=== PATIENT | female | born 1960 | race Asian ===

== ENCOUNTER 2016-07-06 15:10 | Emergency (ER) | payer OTHER ==
[~2016-07-06] VITALS: Ht 157.5 cm; Wt 65.0 kg
[~2016-07-06 15:10] MED LIST: CYCL5TAB PO; ENAL20TA PO; HYDR25TA5 PO; METO50TA PO; PRED20 PO
[2016-07-06 15:13] VITALS: BP 176/84; PULSE 74; RESP 16; TEMP 97.9; O2SAT 98
--- NOTE | 2016-07-06 18:14 | PD ---
HPI Chief Complaint: Medical Clearance Time Seen by Provider: 18:11 Travel History International Travel<30 days: No Contact w/Intl Traveler<30days: No Traveled to known affect area: No History of Present Illness HPI Patient comes in complaining of continued left Achilles tendon pain ongoing from last week. Patient states she was seen at urgent care and diagnosed with Achilles tendinitis. Patient reports she has a follow-up appointment scheduled with podiatry as well as her primary care doctor next week however her work note that she has been urgent care has . Patient states she contacted the urgent care but they would not extend her work note and would not reportedly re-evaluate her. Patient contacted employee [employer] , who recommended she come to the emergency department for further treatment and evaluation. 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 Patient denies any new injuries, numbness, or tingling. Patient reports she been taking medication as prescribed. [facility] Past Medical History Asthma: Yes Diminished Hearing: No Hypertension: Yes ?: Not LMP: 04/2016 Menopausal: Yes Social History Alcohol Use: Yes Tobacco Use: No Substance Use: No Allergies-Medications (Allergen,Severity, Reaction): Coded Allergies: Clonidine (Verified Allergy, Severe, 07/06/16) Penicillin (Verified Allergy, Severe, Rash, 07/06/16) Reported Meds & Prescriptions Reported Meds & Active Scripts Active Prednisone 20 Mg Tab 20 Mg PO DAILY Flexeril (Cyclobenzaprine HCl) 5 Mg Tab 5 Mg PO HS Reported Hydrochlorothiazide 25 Mg Tab 25 Mg PO DAILY Metoprolol Tartrate 50 Mg Tab 50 Mg PO BID Enalapril (Enalapril Maleate) 20 Mg Tab 20 Mg PO DAILY Review of Systems Except as stated in HPI: all other systems reviewed are Neg Physical Exam Narrative GENERAL: Well-developed, well nourished, in no acute distress, and non-ill appearing. SKIN: Warm and dry. HEAD: Atraumatic. Normocephalic. EYES: Pupils equal and round. EOMI. No scleral icterus. No injection or drainage. ENT: No nasal bleeding or discharge. Mucous membranes pink and moist. NECK: Trachea midline. Supple. No nuclear rigidity. RESPIRATORY: No accessory muscle use. No respiratory distress. MUSCULOSKELETAL: No obvious deformities. No clubbing. No cyanosis. No edema. Full range of motion. Neagative Gaxiola test. Negative Michael's sign. Sensation equal BL 1st web space. FROM distal to injury and equal BL. Dorsal pulses equal BL. NEUROLOGICAL: Awake and alert. No obvious cranial nerve deficits. Motor grossly within normal limits. Normal speech. PSYCHIATRIC: Appropriate mood and affect; insight and judgment normal. Data Data Last Documented VS Vital Signs Date Time Temp Pulse Resp B/P Pulse Ox O2 Delivery O2 Flow Rate FiO2 07/06/16 15:13 97.9 74 16 176/84 98 MDM Medical Decision Making Medical Screen Exam Complete: Yes Emergency Medical Condition: No Differential Diagnosis Tendinitis, medical clearance, medical noncompliance, other Narrative Course Patient in no obvious distress upon re-evaluation. Any questions/concerns in reference to patient diagnosis/condition discussed and clarified prior to patient's discharge. Reinforced sheer importance of close follow up with patient 's primary physician or primary care clinic. Instructed patient to return to ED immediately, if symptoms return/worsen. Pt showed understanding of above instructions. Further instructions and recommendations were detailed in discharge paperwork. Pt ambulated without difficulty out of ED at discharge. Diagnosis Primary Impression: Achilles tendinitis, left leg Departure Forms: Work Release Enter return to work date: Jul 09, 2016 Additional Instructions: Follow-up with your primary care physician and small package and bundle sorter clerk as previously instructed. Take all medication as previously prescribed. Return to the emergency department if symptoms get worse. Disposition: 01 DISCHARGE HOME Condition: Stable Christiano Llamas Jul 06, 2016 18:14
== END 2016-07-06 18:40 | disposition home or self-care (01) ==
LOC: NEPB 15:10
DX: M76.60 Achilles tendinitis, unspecified leg (principal); F10.10 Alcohol abuse, uncomplicated; J45.909 Unspecified asthma, uncomplicated
CPT/HCPCS: 99282

== ENCOUNTER → 2016-07-11 | Outpatient (CLI) | payer OTHER ==
[2016-07-11 13:02] LABS: AUTOMATED NEUTROPHIL # 3.7 TH/MM3 (1.8-7.7); BASOPHIL # 0.1 TH/MM3 (0-0.2); BASOPHIL % 1.7 % (0.0-2.0); EOSINOPHIL # 0.4 TH/MM3 (0-0.4); EOSINOPHIL % 6.6 % (0.0-4.0); HEMATOCRIT 42.3 % (35.0-46.0); HEMO FLAGS DIFF FINAL; LYMPH % 25.7 % (9.0-44.0); LYMPHOCYTE # 1.6 TH/MM3 (1.0-4.8); MEAN CELL VOLUME 86.3 FL (80.0-100.0); MEAN CORPUSCULAR HEMOGLOBIN 29.3 PG (27.0-34.0); MONO % 7.4 % (0.0-8.0); NEUT % 58.6 % (16.0-70.0); PLATELET COUNT 253 TH/MM3 (150-450); RED CELL DISTRIBUTION WIDTH 12.8 % (11.6-17.2); WHITE BLOOD COUNT 6.3 TH/MM3 (4.0-11.0)
[2016-07-11 13:12] LABS: ANION GAP 8 MEQ/L (5-15); AST (GOT) 12 U/L (15-37); BICARBONATE 27.8 MEQ/L (21.0-32.0); BLOOD UREA NITROGEN 13 MG/DL (7-18); CHLORIDE 101 MEQ/L (98-107); GLOMERULAR FILTRATION RATE 68 ML/MIN (>89); GLUCOSE,FASTING 93 MG/DL (74-99); POTASSIUM 3.6 MEQ/L (3.5-5.1); SODIUM (NA) 137 MEQ/L (136-145)
[2016-07-11 13:23] LABS: ALKALINE PHOSPHATASE 91 U/L (45-117); ALT (GPT) 18 U/L (10-53); HDL CHOLESTEROL 54.3 MG/DL (40.0-60.0); LDL CHOLESTEROL 169 MG/DL (0-99); TOTAL BILIRUBIN ADULT 0.6 MG/DL (0.2-1.0)
== END ==
LOC: CLAB 12:35
PROVIDERS: ATTEND Family Medicine
DX: I10 Essential (primary) hypertension (principal)
CPT/HCPCS: 36415; 80053; 80061; 84443; 85025

== ENCOUNTER → 2016-11-05 | Outpatient (CLI) | payer OTHER ==
[2016-11-05 15:33] LABS: AUTOMATED NEUTROPHIL # 5.4 TH/MM3 (1.8-7.7); BASOPHIL % 0.6 % (0.0-2.0); EOSINOPHIL # 0.3 TH/MM3 (0-0.4); EOSINOPHIL % 3.7 % (0.0-4.0); HEMO FLAGS DIFF FINAL; LYMPH % 22.7 % (9.0-44.0); LYMPHOCYTE # 1.8 TH/MM3 (1.0-4.8); MEAN CELL VOLUME 85.2 FL (80.0-100.0); MEAN CORPUSCULAR HEMOGLOBIN 29.2 PG (27.0-34.0); MEAN CORPUSCULAR HGB CONC 34.3 % (32.0-36.0); MONO % 5.8 % (0.0-8.0); NEUT % 67.2 % (16.0-70.0); PLATELET COUNT 314 TH/MM3 (150-450); RED BLOOD COUNT 4.82 MIL/MM3 (4.00-5.30); RED CELL DISTRIBUTION WIDTH 12.5 % (11.6-17.2); WHITE BLOOD COUNT 8.1 TH/MM3 (4.0-11.0)
[2016-11-05 15:53] LABS: ANION GAP 8 MEQ/L (5-15); AST (GOT) 17 U/L (15-37); BICARBONATE 28.1 MEQ/L (21.0-32.0); CHLORIDE 102 MEQ/L (98-107); GLOMERULAR FILTRATION RATE 63 ML/MIN (>89); GLUCOSE,FASTING 102 MG/DL (74-99); POTASSIUM 3.4 MEQ/L (3.5-5.1); SODIUM (NA) 138 MEQ/L (136-145)
[2016-11-05 16:04] LABS: ALKALINE PHOSPHATASE 112 U/L (45-117); ALT (GPT) 21 U/L (10-53); BLOOD UREA NITROGEN 22 MG/DL (7-18); HDL CHOLESTEROL 48.8 MG/DL (40.0-60.0); LDL CHOLESTEROL 188 MG/DL (0-99); TOTAL BILIRUBIN ADULT 0.7 MG/DL (0.2-1.0)
== END ==
LOC: CLAB 15:03
PROVIDERS: ATTEND Family Medicine
DX: I10 Essential (primary) hypertension (principal); N91.0 Primary amenorrhea; E78.5 Hyperlipidemia, unspecified
CPT/HCPCS: 36415; 80053; 80061; 84443; 85025

== ENCOUNTER 2018-02-19 05:09 | Inpatient (IN) ==
[2018-02-19] MEDS ORDERED: Chlorhexidine Gluconate 2% 1 Pack (2 Cloths) TOPICAL ONE (05:42)
[2018-02-19] MEDS ORDERED: Metoprolol Tartrate 25 MG Tablet PO ONE (05:42)
[2018-02-19] MEDS ORDERED: Dexamethasone Inj 20 MG/5 ML Vial IV.PUSH PRN (05:46)
[2018-02-19] MEDS ORDERED: Vancomycin Inj 1,000 MG in Sodium Chlor 0.9% Inj 250 ML IV.SIG SCH (06:00)
[2018-02-19] MEDS ORDERED: Sodium Chlor 0.9% Inj 500 ML IV.SIG SCH (06:00)
[2018-02-19] MEDS ORDERED: SODIUM CHLOR 0.9% IV.SIG SCH ×3 (06:00→10:00)
[2018-02-19] MEDS ORDERED: TRANEXAMIC ACID IV.SIG SCH ×3 (06:00→10:00)
[2018-02-19] MEDS ORDERED: Sodium Chlor 0.9% Inj 40 ML, Bupivacaine Liposo PF 1.3% Inj 20 ML P-ARTICULR SCH ×2 (06:00)
[2018-02-19] MEDS ORDERED: ceFAZolin 2 GM Premix Inj 2 GM/50 ML PIGGYBACK IV.SIG SCH (06:00)
[2018-02-19] MEDS ORDERED: Chlorhexidine 4% Topical 120 APPLIC/120 ML Bottle TOPICAL SCH (06:00)
[2018-02-19] MEDS ORDERED: fentaNYL Citrate Inj 100 MCG/2 ML Ampul ONE (06:22)
[2018-02-19] MEDS ORDERED: Famotidine PF Inj 20 MG/2 ML Vial ONE (06:22)
[2018-02-19] MEDS ORDERED: fentaNYL Citrate Inj 250 MCG/5 ML Ampul ONE (06:22)
[2018-02-19] MEDS ORDERED: Ketamine Inj 50 MG/5 ML Syringe IV.PUSH ONE (06:31)
[2018-02-19] MEDS ORDERED: Glycopyrrolate Inj 1 MG/5 ML Syringe IV.PUSH ONE (06:48)
[2018-02-19] MEDS ORDERED: Neostigmine Inj 5 MG/5 ML Syringe IV.PUSH ONE (06:48)
[2018-02-19] MEDS ORDERED: Lidocaine PF 1% Inj 5 ML Syringe OTHER ONE (06:48)
--- NOTE | 2018-02-19 06:58 | P.DCO ---
- Physical Therapy Physical Therapy: Gait training, Transfer training, bed to chair Hip: Total hip Right Lower Extremity Weight Bearing: Weight bearing as tolerated Right Lower Extremity Range of Motion: Active ROM - Nursing Nursing: Leesa teaching Dressing changes: Do not change dressing - Certification Need for Home Health services: I have seen patient Alicia Maria on 02/19/18. My clinical findings support the need for the requested home health care services because: Need for Home Health Services: Limited ability to care for self, High risk of falls Homebound Certification: I certify that my clinical findings support that this patient is homebound because: Homebound Certification: Post-op weakness, Unsteady gait/balance
[2018-02-19] MEDS ORDERED: ALPRAZolam 0.5 MG Tablet PO PRN (08:38)
--- NOTE | 2018-02-19 08:38 | P.OP ---
Preoperative Diagnosis: Right hip severe arthritis. Right hip developmental dysplasia Postoperative Diagnosis: Same Date of procedure: 02/19/18 Procedure: Right total hip arthroplasty Anesthesia: GETA Surgeon: Jimi Dunaway MD Operation and Findings: IMPLANT DESCRIPTION: 1. [place] Gription Cup, acetabular size 48. 2. [place] AltrX polyethylene, neutral. 4. Corail femoral stem size 8, no collar, standard offset. 5. Femoral head/neck ceramic 32, +1. ESTIMATED BLOOD LOSS: 250 cc. JUSTIFICATION FOR PROCEDURE: The patient has end-stage osteoarthritis to the hip, with evidence of developmental dysplasia of the hip. The patient had lateral subluxation of the hip on both sides. There is an attached conservative measures pathway form in the chart that describes the nonoperative measures that were undertaken prior to consideration of surgical management. The patient understood the risks and benefits of surgical management. See my office notes for further details. PROCEDURE: The patient was brought back to the operative theatre. Adequate anesthesia was obtained. The patient received intravenous vancomycin and Ancef. Note the patient had a test dose of Ancef without a reaction. The patient was carefully placed on the operative table. The lower extremity was prepped and draped in the usual sterile fashion. Fluoroscopic images were obtained. We made a standard anterior incision over the hip. We dissected through the TFL fascia, exposing the anterior capsule. Arthrotomy was performed in a T-shaped fashion. The capsule was tagged with a #2 FiberWire. End-stage arthritis was identified. Osteotomy was performed through the femoral neck exposing the acetabulum. Remnants of the labrum were resected and osteophytes were removed. We sequentially reamed the acetabulum. We trialed the hip and placed the final cup into position. This was done under fluoroscopic guidance to obtain the appropriate inclination and anteversion. A manhole cover was placed into the acetabular component. We then placed the final polyethylene into position and confirmed that it was well seated. Capsular attachments on the calcar and the inner aspect of the greater trochanter were resected. On the proximal aspect of the femur we used a rongeur , box osteotome, canal finder, sequential broaches and lateralizing rasp. We did need to modify our sequence because the patient had a known very tight canal likely related to her previous dysplasia. We did need to use reamers which were placed over a ball-tipped guidewire. We started with an 8.5 end- cutter. We sequentially went up by half a size of the reamer. After each half- size increment we went back to the broaches including the chili pepper and the size 8 broach. Note that we could not use a size 6 stem because the patient was too heavy for that micro-stem. The 8 stem is the smallest standard stem that is available for the Corail system. We ended up reaming to a size 11 which allowed us to place the 8 stem in very good position. There was some increased anteversion on the stem due to the anatomy of the proximal femur but this ultimately did not affect stability during trialing. We calcar planed the proximal femur. Then thoroughly irrigated the wound. We trialed the hip with the appropriate size stem. We placed the final stem in to position and trialed again. The hip was stable while it was externally rotated 70 degrees when the leg was lowered to the floor. Note that the right hip seem to be slightly longer than the left side on fluoroscopic imaging. Note that the left side has severe osteoarthritis similar from previous developmental hip dysplasia. The patient understood that we may lengthen the right side slightly during the surgery which would then ultimately need to be modified on the left side during surgery on that side. The final head was applied, and final fluoroscopic images were obtained. The wound was thoroughly irrigated again. Interarticular injection of liposomal bupivacaine was given. The capsule was closed with #2 FiberWire and #1 Vicryl. The deep fascia was closed with a #2 Stratafix, followed by 2-0 Vicryl in the skin and Dermabond dressing. Postop plan is to weight-bear as tolerated. DVT prophylaxis will be performed with Amber, VIRI zamora, early mobilization, and Lovenox followed by aspirin.
[2018-02-19] MEDS ORDERED: Bisacodyl 10 MG Supp RECTAL PRN (08:39)
[2018-02-19] MEDS ORDERED: Post-op Orders (for Pharmacy) OTHER STA (08:39)
[2018-02-19] MEDS ORDERED: Aluminum/Magnesium/Simethacone Susp 30 ML UDC PO PRN (08:39)
[2018-02-19] MEDS ORDERED: Morphine Sulfate Inj 2 MG/ML Vial IV.PUSH PRN (09:00)
[2018-02-19] MEDS ORDERED: *Ondansetron Inj 4 MG/2 ML Vial PERIprocedural Use ONLY ONE (09:32)
[2018-02-19] MEDS: Sod Chloride 0.9% Inj 1,000 ML IV.CONT SCH (09:44)
[2018-02-19] MEDS ORDERED: *Promethazine Inj 25 MG/ML Vial PERIprocedural use ONLY ONE (09:58)
--- NOTE | 2018-02-19 09:59 | XR ---
EXAM DATE: 02/19/2018 8:39 AM EDT AGE/SEX: 57 years / Female INDICATIONS: Post op right hip surgery. CLINICAL DATA: This is the patient's initial encounter. Patient reports that signs and symptoms have been present for 1 day and indicates a pain score of 0/10. MEDICAL/SURGICAL HISTORY: None. None. COMPARISON: No prior exams available for comparison. FINDINGS: 3 views of the pelvis and right hip reveal a total hip prosthesis on the right. This is in good posit ion. The tip of the prosthesis approaches but does not abut the endosteum along the posterior medial cortex of the proximal femur. No fracture or dislocation. Advanced osteoarthritis involving the left hip. Soft tissue swelling and air is noted. CONCLUSION: Right hip prosthesis in good position. Advanced osteoarthritis of the left hip. Electronically signed by: Mayito Liriano MD 02/19/2018 9:58 AM EDT
--- NOTE | 2018-02-19 13:00 | XR ---
EXAM DATE: 02/19/2018 12:00 AM EDT AGE/SEX: 57 years / Female INDICATIONS: Right total hip replacement. CLINICAL DATA: This is the patient's initial encounter. Patient reports that signs and symptoms have been present for 1 day and indicates a pain score of Nonresponsive. MEDICAL/SURGICAL HISTORY: Non-responsive. Non-responsive. COMPARISON: No prior exams available for comparison. FINDINGS: 3 magnified C-arm spot views are centered over the hip and labeled right. There is a total hip prosth esis observed. This is in good position. The tip of the prosthesis does abut the endosteum within the proximal femur. No gross fracture on this style of acquisition. CONCLUSION: Total hip prosthesis as detailed above. Electronically signed by: Mayito Liriano MD 02/19/2018 12:58 PM EDT
[2018-02-19] MEDS: Metoprolol Tartrate 50 MG Tablet PO SCH ×2 (13:55→20:16)
[2018-02-19] MEDS: Multivitamin/Minerals Therapeutic Tablet PO SCH ×2 (13:55→20:16)
[2018-02-19] MEDS: hydroCHLOROthiazide 25 MG Tablet PO SCH (13:55)
[2018-02-19] MEDS: Senna/Docusate Sodium 8.6/50 MG Tablet PO SCH ×2 (13:55→20:16)
[2018-02-19] MEDS ORDERED: Zolpidem Tartrate 5 MG Tablet PO PRN (21:00)
[2018-02-20] MEDS: Sod Chloride 0.9% Inj 1,000 ML IV.CONT SCH ×3 (01:37→23:38)
[2018-02-20 07:11] LABS: Hematocrit 26.7 % (35.0-46.0); Hemoglobin 9.2 gm/dL (11.6-15.3)
--- NOTE | 2018-02-20 07:14 | P.PNOP ---
Subjective Interval history: The patient is resting comfortably in bed in no acute distress. The patient reports moderate discomfort to the right hip. The patient is unsure whether she wants to go home with home health today or stay an additional night. Physical Exam Vital signs: Vital Signs 02/19/18 09:00 02/19/18 09:15 02/19/18 09:30 Temperature 97.5 F L Pulse Rate 67 68 65 Respiratory Rate 14 14 Blood Pressure 114/60 140/63 148/69 H Pulse Oximetry 100 100 100 02/19/18 09:45 02/19/18 10:00 02/19/18 10:15 Temperature 97.6 F Pulse Rate 62 58 L 63 Respiratory Rate 14 14 14 Blood Pressure 139/62 140/67 133/72 Pulse Oximetry 100 100 100 02/19/18 12:00 02/19/18 16:15 02/19/18 20:00 Temperature 97.4 F L 97.1 F L 98.8 F Pulse Rate 72 85 88 Respiratory Rate 16 20 18 Blood Pressure 144/72 H 123/61 127/66 Pulse Oximetry 100 99 99 02/19/18 23:13 02/20/18 00:00 02/20/18 03:30 Temperature 98.4 F Pulse Rate 65 Respiratory Rate 18 16 18 Blood Pressure 128/58 L Pulse Oximetry 99 02/20/18 04:00 02/20/18 04:29 Temperature 97.7 F Pulse Rate 72 Respiratory Rate 18 18 Blood Pressure 145/74 H Pulse Oximetry 100 Intake & Output 02/19/18 02/20/18 02/20/18 18:59 06:59 18:59 Intake Total 2305.8 / 2305.8 1100 / 1100 Output Total 550 / 550 350 / 350 Balance 1755.8 / 1755.8 750 / 750 Weight 57.7 kg 57.7 kg Intake: IV 1605.8 / 1605.8 1100 / 1100 NS Inj 1,000 ML @ 80 mls/hr IV. 1000 / 1000 CONT .[id number] [facility] Rx#:[id number] LR 1000 mL Inj 1,000 ML @ 30 1000 / 1000 mls/hr IV.SIG .Q24H [facility] Rx#: [id number] Cyklokapron Inj 580 MG In NS 105.8 / 105.8 Inj 100 ML @ 200 mls/hr IV.SIG ONCE [facility] Rx#:[id number] Vancomycin Inj 1,000 MG In NS 250 / 250 Inj 250 ML @ 250 mls/hr IV.SIG [employer] [facility] Rx#:[id number] Ancef 2 GM Premix Inj 2 gm In 50 / 50 50 ml @ 100 mls/hr IV.SIG METALLURGICAL ENGINEER [facility] Rx#:[id number] Ancef Inj 1,000 MG In NS Inj 200 / 200 100 / 100 100 ML @ 200 mls/hr IV.SIG Q6H [facility] Rx#:[id number] Anesthesia Amount 700 / 700 Output: Urine 300 / 300 350 / 350 Estimated Blood Loss 250 / 250 Other: # Voids 1 4 Date of Last Bowel Movement 02/19/18 02/18/18 Narrative: The patient's dressing is clean, dry, and intact. EHL/TA/G are intact. 2+ pedal pulse. The patient's calf is soft and nontender. Sensation is intact to light touch distally. Results - Labs CBC & Chem 7: 02/20/18 03:46 - Imaging Impressions Hip X-Ray 02/19/18 00:00 CONCLUSION: Total hip prosthesis as detailed above. Hip X-Ray 02/19/18 08:39 CONCLUSION: Right hip prosthesis in good position. Advanced osteoarthritis of the left hip. - Procedures Right total hip arthroplasty Assessment and Plan - Problem List (1) Status post total hip replacement, right Code(s): Z96.641 - Presence of right artificial hip joint Status: Acute (2) Osteoarthritis of right hip Code(s): M16.11 - Unilateral primary osteoarthritis, right hip Status: Acute - Assessment and Plan POD #1: [Right] total hip arthroplasty 1. Weightbearing as tolerated on [right] lower extremity. 2. Lovenox followed by aspirin for DVT prophylaxis. 3. Ice as needed for swelling. 4. Stable per ortho for discharge to home health today or tomorrow. 5. The patient will follow up with Dr. Dunaway and/or JUAN Lemos as previously scheduled.
[2018-02-20] MEDS: Senna/Docusate Sodium 8.6/50 MG Tablet PO SCH ×2 (08:32→20:59)
[2018-02-20] MEDS: Metoprolol Tartrate 50 MG Tablet PO SCH ×2 (08:33→20:59)
[2018-02-20] MEDS: Enoxaparin Inj 40 MG/0.4 ML Syringe SQ SCH (08:34)
[2018-02-20] MEDS: Multivitamin/Minerals Therapeutic Tablet PO SCH ×2 (08:35→20:59)
[2018-02-20] MEDS: hydroCHLOROthiazide 25 MG Tablet PO SCH (08:35)
[2018-02-20] MEDS ORDERED: Dexamethasone Inj 20 MG/5 ML Vial IV.PUSH ONE (09:00)
[2018-02-20 21:04] VITALS: O2SAT 98
[2018-02-21 05:13] LABS: Hematocrit 26.3 % (35.0-46.0); Hemoglobin 9.2 gm/dL (11.6-15.3)
[2018-02-21] MEDS: Metoprolol Tartrate 50 MG Tablet PO SCH (08:36)
[2018-02-21] MEDS: Multivitamin/Minerals Therapeutic Tablet PO SCH (08:36)
[2018-02-21] MEDS: Senna/Docusate Sodium 8.6/50 MG Tablet PO SCH (08:36)
[2018-02-21] MEDS: hydroCHLOROthiazide 25 MG Tablet PO SCH (08:36)
[2018-02-21] MEDS: Enoxaparin Inj 40 MG/0.4 ML Syringe SQ SCH (08:36)
--- NOTE | 2018-02-21 09:45 | P.PNOP ---
Subjective Interval history: The patient is sitting on the side of the bed with decreased discomfort to the right hip. The patient has expressed interest to be discharged home today with home health. Physical Exam Vital signs: Vital Signs 02/20/18 12:00 02/20/18 12:38 02/20/18 15:36 Temperature 98.4 F 98.2 F Pulse Rate 70 80 Respiratory Rate 18 18 17 Blood Pressure 96/52 L 126/60 Pulse Oximetry 98 97 02/20/18 18:27 02/20/18 20:00 02/20/18 23:15 Temperature 99.5 F 98.5 F Pulse Rate 75 62 Respiratory Rate 18 17 18 Blood Pressure 134/64 159/68 H Pulse Oximetry 98 98 02/21/18 01:19 02/21/18 04:38 Temperature Pulse Rate Respiratory Rate 16 18 Blood Pressure Pulse Oximetry Intake & Output 02/20/18 02/21/18 02/21/18 18:59 06:59 18:59 Intake Total 1460 / 1460 Balance 1460 / 1460 Weight 57.7 kg Intake: IV 500 / 500 NS Inj 1,000 ML @ 80 mls/hr IV. 500 / 500 CONT .[id number] [facility]ION[facility] Rx#:[id number] Oral 960 / 960 Other: # Voids 4 3 Date of Last Bowel Movement 02/18/18 02/18/18 Narrative: The patient's dressing is clean, dry, and intact. EHL/TA/G are intact. 2+ pedal pulse. The patient's calf is soft and nontender. Sensation is intact to light touch distally. Results - Labs CBC & Chem 7: 02/21/18 03:29 Laboratory Results - last 24 hr 02/21/18 03:29 Hgb 9.2 L Hct 26.3 L - Procedures Right total hip arthroplasty Assessment and Plan - Problem List (1) Status post total hip replacement, right Code(s): Z96.641 - Presence of right artificial hip joint Status: Acute (2) Osteoarthritis of right hip Code(s): M16.11 - Unilateral primary osteoarthritis, right hip Status: Acute - Assessment and Plan POD #2: [Right] total hip arthroplasty 1. Weightbearing as tolerated on [right] lower extremity. 2. Lovenox followed by aspirin for DVT prophylaxis. 3. Ice as needed for swelling. 4. Stable per ortho for discharge to home health today. 5. The patient will follow up with Dr. Dunaway and/or JUAN Lemos as previously scheduled.
[2018-02-21 09:46] VITALS: BP 143/63
--- NOTE | 2018-02-21 09:47 | P.DS ---
Date of admission: 02/19/18 05:09 Primary care physician: Pamela Monsalve MD Attending physician on discharge: Jimi Cortes Anticipated date of discharge: 02/21/18 Brief History from admission: Patient was admitted to the hospital for severe osteoarthritis of the right hip to have a right total hip arthroplasty. DS: Diagnosis - Discharge Diagnosis (1) Status post total hip replacement, right Status: Acute (2) Osteoarthritis of right hip Status: Acute DS: Summary Hospital Course: The patient was admitted to the hospital for severe osteoarthritis of the [right ] hip to have a [right] total hip arthroplasty. The patient's surgery went well with no complication. The patient is on a [regular] diet. The patient's DVT prophylaxis includes use of [Lovenox followed by aspirin]. The patient is weightbearing as tolerated. The patient was discharged [home with home health] and will follow up in the office with Dr. Cortes and/or JUAN Lemos as previously scheduled. - Time Spent with Patient Total time spent providing and/or coordinating discharge services: Greater than 30 minutes - Quality: VTE Deep Vein Thrombosis/Pulmonary Embolism Present on Admission: No Exam Vital signs: Vital Signs 02/20/18 12:00 02/20/18 12:38 02/20/18 15:36 Temperature 98.4 F 98.2 F Pulse Rate 70 80 Respiratory Rate 18 18 17 Blood Pressure 96/52 L 126/60 Pulse Oximetry 98 97 02/20/18 18:27 02/20/18 20:00 02/20/18 23:15 Temperature 99.5 F 98.5 F Pulse Rate 75 62 Respiratory Rate 18 17 18 Blood Pressure 134/64 159/68 H Pulse Oximetry 98 98 02/21/18 01:19 02/21/18 04:38 Temperature Pulse Rate Respiratory Rate 16 18 Blood Pressure Pulse Oximetry Intake & Output 02/20/18 02/21/18 02/21/18 18:59 06:59 18:59 Intake Total 1460 / 1460 Balance 1460 / 1460 Weight 57.7 kg Intake: IV 500 / 500 NS Inj 1,000 ML @ 80 mls/hr IV. 500 / 500 CONT .[id number] DIONNE Rx#:[id number] Oral 960 / 960 Other: # Voids 4 3 Date of Last Bowel Movement 02/18/18 02/18/18 Narrative: The patient's dressing is clean, dry, and intact. EHL/TA/G are intact. 2+ pedal pulse. The patient's calf is soft and nontender. Sensation is intact to light touch distally. Results Procedures completed during hospitalization: Right total hip arthroplasty Labs on day of discharge: Labs from last 24 hours 02/21/18 03:29 Hgb 9.2 L Hct 26.3 L - Impressions ITS Impressions Hip X-Ray 02/19/18 08:39 CONCLUSION: Right hip prosthesis in good position. Advanced osteoarthritis of the left hip. Discharge Plan - Discharge Disposition Patient Disposition: Disch W/Home Health Service - Discharge Condition Condition: Stable - Discharge Order Discharge Orders: Discharge Order (Routine); Ordered 02/19/18 Ordered By: Rodrigo Cervantes - Discharge Details Anticipated Discharge Date: 02/20/18 - Physicians Team Primary Care Provider: Pamela Monsalve Attending Provider: Jimi Cortes - Rxs /Orders / Referrals /Forms Prescriptions: Continue alprazolam 0.5 mg Tablet 0.5 mg PO BID PRN (Reason: Anxiety) enalapril maleate 20 mg Tablet 20 mg PO BID hydrochlorothiazide 25 mg Tablet 25 mg PO DAILY metoprolol tartrate 50 mg Tablet 50 mg PO BID Ambulatory Orders / Order Sets / DME: Adjustable Commode 3-in-1 (1 each) (Routine) Location: Determined by Patient Ordered By: Rodrigo Cervantes Walker With Front Wheels (1 each) (Routine) Location: Determined by Patient Ordered By: Rodrigo Cervantes Referrals: Jimi Cortes MD [Physician] - See Instructions (f/u in the office with Dr. Cortes or Justin Cervantes APRN as previously scheduled. Your appointment has been scheduled for Saturday03/03/18 at 9:20AM. If you cannot make this appointment, please call the office to reschedule ) Pamela Monsalve MD [Primary Care Provider] - See Instructions - Discharge Instructions Patient Printed Instructions: How to Choose and Use a Walker (GEN), VIRI Hose ( DC), Total Hip Replacement (DC) Additional Instructions: PRESCRIPTIONS GIVEN TO PATIENT PRIOR TO HOSPITAL ADMISSION. KEEP YOUR SCHEDULED APPOINTMENT WITH DR. CORTES DISCUSSED. IF YOU HAVE ANY QUESTIONS OR CONCERNS, PLEASE CALL THE OFFICE. FOLLOW UP WITH YOUR PRIMARY CARE PROVIDER IN 3-7 DAYS. NO DRIVING WHILE TAKING NARCOTIC PAIN MEDICINE. NO HEAVY LIFTING, BENDING, OR STRENUOUS ACTIVITY UNTIL CLEARED BY YOUR ORTHOPEDIC SURGEON. WEIGHT BEARING TOLERATED. REGULAR DIET TOLERATED. IT WAS A PLEASURE TAKING CARE OF YOU. WE WISH THAT YOU HEAL QUICKLY! - Post Discharge Care Plan Care Plan Goals: Discharge Care Plan Goals for Total Hip Replacement You had a hip replacement surgery. This means your natural hip was replaced with an artificial joint (prosthesis). You may be recovering at home or in a rehabilitation facility. Either way, you must take care of your new hip. Here are some goals to help you heal well. Directions to Meet your Goals: 1. Activity & Exercises: * Take pain medicine as directed by your doctor. * Dont drive until your doctor says its OK. And never drive while taking opioid pain medicine. * Wear the support stockings you were given in the hospital as directed by your surgeon. * Dont sit for more than 30 to 45 minutes at one time. * Dont lean forward while sitting. * Dont cross your legs. * Keep your feet flat on the floor. Dont turn your foot or leg inward. This stresses your hip joint. * Use an elevated toilet seat for 6 weeks after surgery. * Nap if you are tired, but dont stay in bed all day. * Sit on a firm cushion when you ride in a car and avoid sitting too low. Try not to bend your hip too much when getting in and out of the car. 2. Prevent Falls/Injury: * Follow your doctors orders regarding how much weight to put on the affected leg. * Dont bend at the hip when you bend over. Don't bend at the waist to put on socks and shoes. And avoid picking up items from the floor. * Use a cane, crutches, a walker, or handrails until your balance, flexibility, and strength improve. And remember to ask for help from others when you need it. * Free up your hands so that you can use them to keep balance. Use a azeb pack , apron, or pockets to carry things. * Arrange your household to keep the items you need handy. Keep everything else out of the way. * Remove items that may cause you to fall, such as throw rugs and electrical cords. * Use nonslip bath mats, grab bars, an elevated toilet seat, and a shower chair in your bathroom * Sit on a shower stool or chair when you shower to keep from falling. 3. Precautions: * Prevent infection. Any infection will need to be treated immediately. Call your doctor right away if you think you might have an infection. * Tell your dentist that you have an artificial joint and take antibiotics as prescribed before any dental work. * Tell all your healthcare providers about your artificial joint before any medical procedure. * Maintain a healthy weight. Get help to lose any extra pounds. Added body weight puts stress on the joints. 4. Incision Care: * Prevent infection by washing your hands often. If an infection occurs, it will need to be treated right away. * Call your doctor right away if you think you may have an infection. Symptoms include a fever or an incision that leaks white, green, or yellow fluid. * Don't soak your incision in water until your doctor says its OK. This means no hot tubs, bathtubs, or swimming pools. * Follow your doctor's instructions for changing the dressing. * Dont rub the incision, or apply creams or lotions to it. * If you notice any redness or drainage around the bandage site, contact your surgeon's office immediately. 5. Follow-Up: Do Not miss your follow-up appointment. Keep up with all your appointments and yearly check ups When to call your doctor: Call your doctor right away if you have: Hip pain gets worse Pain or swelling in your calf or leg not related to your incision Tenderness or redness in your calf Fever of 100.4F (38C) or higher, or as directed by your healthcare provider Shaking chills Swelling or redness at the incision site gets worse Fluid draining from the incision Call 911: Call 911 right away if you have: Chest pain Shortness of breath Any pain or tenderness in your calf
[2018-02-21 13:12] VITALS: PULSE 65; RESP 16; TEMP 98
[2018-02-21] MEDS: Sod Chloride 0.9% Inj 1,000 ML IV.CONT SCH (13:34)
== END 2018-02-21 14:56 | disposition home health service (06) ==
LOC: HSDI 05:09 → N06 10:38
PROVIDERS: ADMIT Orthopaedic Surgery; ATTEND Orthopaedic Surgery